=== PATIENT | male | born 1970 | race Caucasian/White ===

== ENCOUNTER → 2025-04-08 11:19 | Outpatient (REF) | payer BC, SELFPAY | LOC: HWRCS 11:19 | PROVIDERS: ATTENDING PHYSICIAN Internal Medicine; FAMILY PHYSICIAN Internal Medicine | DX: I25.10 Atherosclerotic heart disease of native coronary artery without angina pectoris (principal); Z95.5 Presence of coronary angioplasty implant and graft; Z92.3 Personal history of irradiation; R61 Generalized hyperhidrosis | CPT/HCPCS: 78452; 93017; A9500 ==